=== PATIENT | female | born 1990 | race Caucasian/White ===

== ENCOUNTER → 2020-01-02 | Outpatient (CLI) | payer OTHER ==
[~2020-01-02] MED LIST: IBU800 M1 PO; PERCOCET 325 MG1 TA2 PO; PRENATAL PO; TYLENOL PM EXTR1 TA1 PO; ZYRTEC 10MG10 MG PO
== END ==
LOC: ZCOL.LAB
DX: Z20.828 Contact with and (suspected) exposure to other viral communicable diseases (principal)

== ENCOUNTER 2020-01-08 06:34 | Inpatient (IN) | payer OTHER ==
[2020-01-08] VITALS (16 sets, daily range): BP systolic 123–142; BP diastolic 70–88; PULSE 56–81; TEMP 98–98.3
[~2020-01-08] VITALS: Ht 170.2 cm; Wt 80.9 kg
--- NOTE | 2020-01-08 19:00 | NUR ---
PT ARRIVED TO UNIT AMBULATORY WITH SPOUSE FOR SCHEDULED CYTOTEC INDUCTION. ORIENTED TO ROOM, CHANGED INTO GOWN, EFMX2 APPLIED, VS OBTAINED.
[2020-01-08 19:58] LABS: BASO % 0.3 % (0.0-2.0); EOS # 0.1 (0.0-0.7); EOS % 0.9 % (0-4.0); GRAN # 4.4 (1.4-6.5); GRAN % 67.9 % (42.2-75.2); HEMOGLOBIN 13.2 g/dl (12.5-16.0); LYMPH # 1.3 (1.2-3.4); LYMPH % 20.6 % (20.0-51.0); MEAN CELL VOLUME 94 fl (80.0-100.0); MEAN CORPUSCULAR HEMOGLOBIN 33 pg (27.0-31.0); MEAN CORPUSCULAR HGB CONC 35 g/dl (33.0-37.0); MEAN PLATELET VOLUME 11.4 fl (7.4-10.4); MONO # 0.6 (0.1-0.6); MONO % 9.4 % (1.7-9.3); PLATELET COUNT 160 K/mm3 (130-400); RED BLOOD COUNT 4.05 M/mm3 (4.10-5.30); REDCELL DISTRIBUTION WIDTH-CV 12.9 % (11.5-14.5)
[2020-01-08] MEDS ORDERED: ZYRTEC 10MG10 MG PO (20:50)
[2020-01-08] MEDS ORDERED: PRENATAL PO (20:50)
[2020-01-08] MEDS ORDERED: TYLENOL PM EXTR1 TA1 PO (20:51)
[2020-01-09] VITALS (67 sets, daily range): BP systolic 102–161; BP diastolic 52–102; PULSE 58–99; TEMP 97.4–98.3
--- NOTE | 2020-01-09 05:06 | NUR ---
0447- ANU TONG IN ROOM FOR EPIDURAL PLACEMENT. PT SITTING UP ON SIDE OF BED, PULSE OX ON, BP SET TO Q5 MINUTES. 0500- TEST DOSE GIVEN BY Aminta RICCI CRNA, PT TOLERATED WELL. 0506- PT REPOSITIONED INTO SEMIFOWLERS.
--- NOTE | 2020-01-09 07:35 | NUR ---
Dr Carrion here at nurse's station. Reviews FHR monitor strip at this time. Variable decelerations noted at 0654, 0701 and 0707. 0718:Spontaneous prolonged decel noted. FHR decreased to 100-110 bpm for 3 seconds. SVE 6-7/70/-2. Positive scalp stimulation noted. 0742:Physician at bedside, SVE: 6/75/-2. Pt repositioned to left lateral with stirrups. 0749:spontaneous variable decel noted. Dr Carrion and this nurse at bedside. Pt repositioned to sitting up. 0825:Physician at nurse's station reviewed FHR strip. Order to start pitocin at 2mu. Physician explained to pt and plan of care reviewed.
--- NOTE | 2020-01-09 08:29 | NUR ---
Intermittent late decelerations noted at 0829 and 0838. Pt then repositioned to wedged left. 0849: Prolonged decel noted. FHR decreased to 60bpm for 80 seconds, then returning to baseline and then decreasing again to 90bpm for 3 minutes. Pt repositioned to sitting up.
--- NOTE | 2020-01-09 09:35 | NUR ---
Recurrent variable decels noted. FHR decreasing to 60-100 bpm for 30-[address] Carrion asked to monitor strip from office. 0943:Physician attempting to log on and monitor. 48:Physician calls and unable to see strip from office. Updated on prolonged decel at 0849 and then recurrent variables since. Moderate variabilty and positive scalp stimulation noted, will continue and no new orders at this time.
--- NOTE | 2020-01-09 10:01 | NUR ---
Recurrent variable decels, FHR decreasing to 60-70bpm with every contraction. Pt repositioned several times and peanut ball tried. 1020:Pt to knee chest position, pitocin off and O2 on at 8L per mask. 1025: Dr Carrion called and updated on recent recurrent variables and interventions. Will continue to monitor and let mom and baby rest at this time.
--- NOTE | 2020-01-09 11:10 | NUR ---
spontaneous decel noted. FHr decreased to 60-70 bpm for 90 seconds. Pt repositioned to left lateral. Moderate variabilty and accels noted.
--- NOTE | 2020-01-09 11:50 | NUR ---
Spontaneous deceleration, FHR decreased to 50bpm for 80 seconds. 1200:Dr. Carrion called and updated. See physician notification.
--- NOTE | 2020-01-09 12:48 | NUR ---
Dr. Carrion here and reviews monitor strip. 1250:SVE 9/90/0. 1252: prolonged decel noted. FHR decreased to 50bpm for 90 seconds. Physician at bedside, scalp electrode placed and pt repositioned to a sitting up position. 1258: Prolonged deceleration noted. FHR decreased to 38 bpm and not returning to baseline. 1300:Decision made by Dr. Carrion for stat c/section. Pt prepped, scalp electrode removed and to OR at 1303. FHT's dopplered and 135bpm in OR. See intraop notes.
--- NOTE | 2020-01-09 16:10 | NUR ---
shadowing noted on abd dressing towards the middle bottom section. Dressing marked. Fundus firm, no vaginal bleeding noted since c/section. Dr Carrion here and updated. Will continue to monitor.
--- NOTE | 2020-01-09 19:25 | NUR ---
1925- SCD'S REMOVED, PT ASSISTED UP TO BATHROOM. MARIE CATHETER REMOVED AFTER DEFLATING BALLOON. PT PERFORMS PERICARE. CLEAN GOWN, PAD, AND PANTIES PROVIDED. NORMAL LOCHIA DISCUSSED AND QUESTIONS ANSWERED.
[2020-01-10 01:10] VITALS: BP 124/75; PULSE 85; TEMP 98
[2020-01-10 05:25] VITALS: BP 127/79; PULSE 86; TEMP 98
[2020-01-10 09:00] VITALS: BP 116/63; PULSE 87; TEMP 97.8
--- NOTE | 2020-01-10 09:00 | NUR ---
Rests in bed, alert, baby. 0915 Percocet 5\325 mg two given per request and as ordered. Denies other needs at this time.
--- NOTE | 2020-01-10 14:24 | NUR ---
Ibuprofen 800 mg, percocet 5/325 mg two given per request and as ordered.
[2020-01-10 16:30] VITALS: BP 114/68; PULSE 79; TEMP 97.6
[2020-01-10 20:15] VITALS: BP 122/67; PULSE 82; TEMP 97.7
[2020-01-11 07:00] VITALS: BP 127/77; PULSE 77; TEMP 98.4
--- NOTE | 2020-01-11 07:00 | NUR ---
Rests in bed, alert. Assessment done. 0720 Ibuprofen 800 mg, percocet 5/325 mg two given per request and as ordered.
[2020-01-11] MEDS ORDERED: PERCOCET 325 MG1 TA2 PO (12:48)
[2020-01-11] MEDS ORDERED: IBU800 M1 PO (12:48)
[2020-01-11 15:34] VITALS: BP 126/76; PULSE 76; TEMP 98.4
== END 2020-01-11 16:45 | disposition home or self-care (01) | DRG 788 ==
LOC: OB 06:34 → LDR 18:57 → OB 19:56
PROVIDERS: ADMIT Student in an Organized Health Care Education/Training Program
PROC: 3E0P7VZ Introduction of Hormone into Female Reproductive, Via Natural or Artificial Opening (ICD-10-PCS; 2020-01-08)
PROC: 10D00Z1 Extraction of Products of Conception, Low, Open Approach (ICD-10-PCS; principal; 2020-01-09)
DX: O99.52 Diseases of the respiratory system complicating childbirth (principal); J44.9 Chronic obstructive pulmonary disease, unspecified; O76 Abnormality in fetal heart rate and rhythm complicating labor and delivery; Z3A.41 41 weeks gestation of pregnancy; Z37.0 Single live birth
CPT/HCPCS: J0595; J0690; J1885; J2370; J2400; J2405; J2590; J2704; J7120